=== PATIENT | female | born 1975 | race Caucasian/White ===

== ENCOUNTER 2019-06-05 18:29 | Emergency (ER) | payer MEDICAID ==
[~2019-06-05] VITALS: Ht 162.6 cm; Wt 108.2 kg
[~2019-06-05 18:29] MED LIST: AMOXICILLIN 50500 MG PO; ASPIRIN 81M81 MG/TA2 PO; BACTRIM DS 8001 TAB PO; CEPHALEXIN500 M1 PO; FLAGYL 250250 MG/TAB PO; FOLIC ACID 11 MG/TA1; FORTAMET500 MG PO; GLUCOPHAGE XR500 M1 PO; GLUCOPHAGE1000 MG PO; GLUCOPHAGE500 MG/TAB PO; LEVEMIR SQ; LEVEMIR100 U/ML SQ; LOVENOX 4040 MG/0.4 SQ; MAXZIDE-25MG TA1 TAB PO; METFORMIN500 MG PO; MOTRIN 600600 MG/TAB PO; NO HOME MEDICATIONS; NORCO 325 MG-51 TAB PO; NOVLOG SQ; NOVOLOG 100U100 U/M1; PEPCID 20MG TAB20 MG PO; PERCOCET 325 MG1 TA2 PO; PRENATAL1 TA1 PO; TRAMADOL50 MG PO; ULTRAM 50MG TAB50 MG PO
[2019-06-05 18:43] VITALS: BP 163/99
[2019-06-05 21:35] VITALS: PULSE 98
== END 2019-06-05 21:36 | disposition home or self-care (01) ==
LOC: COL.ER 18:29
DX: K08.89 Other specified disorders of teeth and supporting structures (principal); Z98.818 Other dental procedure status; Z79.84 Long term (current) use of oral hypoglycemic drugs
CPT/HCPCS: J2270

== ENCOUNTER 2020-11-18 21:49 | Inpatient (IN) | payer SELFPAY ==
[~2020-11-18] VITALS: Ht 162.6 cm; Wt 104.5 kg
[2020-11-18 22:22] LABS: HEMATOCRIT 38.7 % (37.0-47.0); HEMOGLOBIN 12.6 g/dl (12.5-16.0); MEAN CELL VOLUME 85 fl (80.0-100.0); MEAN CORPUSCULAR HEMOGLOBIN 28 pg (27.0-31.0); MEAN CORPUSCULAR HGB CONC 33 g/dl (33.0-37.0); MEAN PLATELET VOLUME 9.1 fl (7.4-10.4); PLATELET COUNT 397 K/mm3 (130-400); RED BLOOD COUNT 4.58 M/mm3 (4.10-5.30); REDCELL DISTRIBUTION WIDTH-CV 13.3 % (11.5-14.5)
[2020-11-18 22:32] LABS: ALBUMIN 3.6 gm/dL (3.5-5.0); BILIRUBIN,TOTAL 0.6 mg/dL (0.0-1.0); CALCIUM 8.8 mg/dL (8.4-10.2); CREATININE, serum 0.59 (0.52-1.25); POTASSIUM 4.5 mmol/L (3.4-5.0); TOTAL PROTEIN 7.9 gm/dL (6.4-8.2)
[2020-11-18 23:07] LABS: BAND 8 % (0-10); HYPOCHROMIA 1+; LYMPHOCYTE 15 % (20.0-51.0); NEUTROPHILS 72 % (42.0-75.2); PLATELET ESTIMATE NORMAL (NORMAL)
[2020-11-18 23:13] LABS: C-REACTIVE PROTEIN 36.8 mg/dL (0.0-0.9)
[2020-11-19] VITALS (16 sets, daily range): BP systolic 120–163; BP diastolic 44–79; PULSE 78–102; TEMP 98.2–102.8
--- NOTE | 2020-11-19 03:44 | NUR ---
PATIENT TO ROOM VIA ER CART WITH PATIENT'S FATHER PRESENT. PATIENT ABLE TO WALK FROM CART TO HOSP BED WITH C/O OF RIGHT BUTTOCK PAIN WITH CONTACT TO RIGHT BUTTOCK AREA, OBSERVED SOME LIGHT REDDISH DRAINAGE TO CHUX ON BED WHEN PATIENT SAT DOWN ON SIDE OF BED INITIALLY.
--- NOTE | 2020-11-19 04:14 | NUR ---
PATIENT STATES SHE TAKES OTC TYLENOL AT HOME WITH NO REPORTED PROBLEMS.
--- NOTE | 2020-11-19 04:45 | NUR ---
PATIENT REPORTS INTERMITTENT SOA, SEE [facility] FOR RESPIRATORY ASSESSMENT. REQUESTED TO HAVE RESP TREATMENT THAT SHE RECEIVED IN ED TO BE ORDERED. CONTACTED DR PAGAN REGARDING PATIENT REQUEST, VERBAL ORDER GIVEN TO HAVE DOUNEB RT TREATMENTS PRN. INFORMED RESPIRATORY THERAPY OF VERBAL PROVIDER ORDER, RT STATES THEY WILL PROCESS VERBAL ORDER.
--- NOTE | 2020-11-19 06:10 | NUR ---
PATIENT REQUESTED/GIVEN IV MS FOR COMPLAINT OF RECURRENT R BUTTOCK/LABIA PAIN, SEE MAR FOR DOSE TIME. IV FLUIDS INFUSING WITH NO PROBLEMS.
--- NOTE | 2020-11-19 07:12 | NUR ---
CHANGE OF SHIFT REPORT GIVEN TO DAY SHIFT NURSES, DEVON RN AND ALF BAHENA.
--- NOTE | 2020-11-19 08:00 | NUR ---
Pt is lying in bed on left side at this time, is alert et oriented, pleasant et cooperative. When asked, pt states that abcesses began about 2 weeks ago et she was previously treated for this in [place] on the . Pt's brother the . Pt states that she does have pain in perineal area, rates pain at a 9/10. Pt was previously given morphine this morning et states that it gave her a headache et made her feel sick to her stomach. Pt denies other needs @ this time. Call light et bedside table within reach.
--- NOTE | 2020-11-19 10:15 | NUR ---
firestop/containment worker met with patient to discuss discharge plan. Patient lives at home with her children in [place], [place]. Patient's father Juan F ([phone]) at bedside. Patient is fully independent. Patient does not currently have a PCP but verbalizes she has used [place] in the past and would like her hospital follow up there. Recent traumatic event with [facility] and strongly voices that she does not want to go there. Reports she is uninsured and depending on what they send her home on will need help affording medications. Patient normally uses [facility] in [place] for medications, but upon discharge would like to use [facility] in [place]. Worker confirmed [employer]gr[facility] Chauhan has been in contact with the patient but has not initiated a Medicaid application due to patient heading to surgery. Patient states she does have a DPOA-HC established and her agent is her odest daughter Marisol Wills ([phone]) and has form at home. Patient plans to discharge home. *Discharge plan: Home*
--- NOTE | 2020-11-19 12:00 | NUR ---
PATIENT GOING DOWN TO OR VIA BED. CONSENT ON CHART. IV FLUIDS INFUSING VIA GRAVITY. PATIENT OFF FLOOR.
--- NOTE | 2020-11-19 12:03 | NUR ---
Vancomycin Initial Dosing Pharmacy Note Ordering provider: Sherman Morales MD Indication/duration: cellulitis/abscess rt leg, 7 days LABS: SCr 0.59, CrCl~119, GFR 110 Recommendation: Will continue with Vancomycin 1.25 gm IV q8h. Pharmacy will continue to closely monitor and check a Vancomycin trough prior to 4th dose on 11/20/20. Loading dose: 2 grams Maintenance dose: 1.25 grams every 8 hours Trough goal: 10-15 ug/mL
--- NOTE | 2020-11-19 14:05 | NUR ---
PATIENT BACK IN ROOM 342 POST OP I&D OF PERIANAL ABCESS. MESH PANTIES & ABD INPLACE. VSS. PATIENT RESTING COMFORTABLY IN BED WITH FAMILY AT BEDSIDE.
--- NOTE | 2020-11-19 16:31 | NUR ---
First visit from the contract serviceman. No needs right now.
--- NOTE | 2020-11-19 18:00 | NUR ---
CALLED HOSPITALIST ABOUT CXR & TROPONIN CALLED TO NURSING BY LAB. SEE NEW ORDERS. PATIENT NOW ON 2L OXYGEN TO MAINTAIN SATS ABOVE 92%
--- NOTE | 2020-11-19 18:50 | NUR ---
RECEIVED CHANGE OF SHIFT REPORT FROM DAY SHIFT NURSES. PATIENT REQUESTING PAIN MEDS WHEN NEXT AVAILABLE. UP TO BATHROOM TO VOID, ABD DRSG FELL OFF SURGICAL SITE, REPLACED WITH NEW ABD DRSG/SECURED WITH SURGICAL MESH UNDERWEAR. OXYGEN CONTINUES PER NC, DENIES SOA AT TIME OF REPORT.
--- NOTE | 2020-11-19 22:10 | NUR ---
PATIENT REPORTED BURNING/PAIN TO IV SITE WITH VANCO INFUSING (OBSERVED SOME SWELLING, NO REDNESS WITH C/O PAIN/BURNING), CHANGE IV VANCO OVER TO RAC SITE, AFTER STOPPING ZOSYN INFUSION. ICE APPLIED TO PREV INFITRATED SITE TO RIGHT UPPER FOREARM.
--- NOTE | 2020-11-19 23:46 | NUR ---
INFORMED ONCALL HOSP PROVIDER OF RECENT TEMP AT 101.6, ORDERS TO BE ENTERED BY PROVIDER FOR DOSE FREQUENCY CHANGE FOR TYLENOL.
[2020-11-20] VITALS (7 sets, daily range): BP systolic 114–156; BP diastolic 48–71; PULSE 77–100; TEMP 97.7–101.6
--- NOTE | 2020-11-20 06:48 | NUR ---
CHANGE OF SHIFT REPORT GIVEN TO DAY SHIFT NURSE, KACEY BAHENA.
--- NOTE | 2020-11-20 10:57 | NUR ---
PT RESTING IN BED. PT INDEPENDENT IN ROOM. ABD PAD REPLACED AFTER USING BR. PT RETURNED TO BED INDEPENDENTLY. IV ABX. PT EATING AND DRINKING WITH NO N/V.
[2020-11-20 14:38] LABS: COLLECTION METHOD CLEAN CATCH
[2020-11-20 15:09] LABS: MUCOUS Present /lpf; PH 5 (5-8); SQUAMOUS EPITHELIAL 0-2 /hpf; URINE APPEARANCE Clear; URINE BACTERIA None Seen /hpf; URINE BILIRUBIN Negative (NEGATIVE); URINE BLOOD 1+ (NEGATIVE); URINE COLOR Straw; URINE GLUCOSE 3+ (NEGATIVE); URINE KETONE Negative (NEGATIVE); URINE LEUKOCYTE ESTERASE Negative (NEGATIVE); URINE NITRATE Negative (NEGATIVE); URINE PROTEIN(semi-quant) Negative (NEGATIVE); URINE RBC 0-2 /hpf; URINE UROBILINOGEN Negative (NEGATIVE)
[2020-11-20 20:32] LABS: MEAN CELL VOLUME 84 fl (80.0-100.0); MEAN CORPUSCULAR HGB CONC 32 g/dl (33.0-37.0); RED BLOOD COUNT 3.76 M/mm3 (4.10-5.30); REDCELL DISTRIBUTION WIDTH-CV 13.3 % (11.5-14.5)
[2020-11-20 20:45] LABS: CALCIUM 8.2 mg/dL (8.4-10.2); CREATININE, serum 0.6 (0.52-1.25); POTASSIUM 4.1 mmol/L (3.4-5.0)
[2020-11-20 20:52] LABS: HEMATOCRIT 31.7 % (37.0-47.0); HEMOGLOBIN 10.2 g/dl (12.5-16.0); MEAN CORPUSCULAR HEMOGLOBIN 27 pg (27.0-31.0)
[2020-11-20 20:53] LABS: PLATELET COUNT 268 K/mm3 (130-400)
[2020-11-20 21:22] LABS: BAND 6 % (0-10); EOSINOPHIL 2 % (0-4); LYMPHOCYTE 27 % (20.0-51.0); METAMYELOCYTE 1 % (0-0); NEUTROPHILS 60 % (42.0-75.2)
[2020-11-20 21:23] LABS: PLATELET ESTIMATE NORMAL (NORMAL)
[2020-11-21 02:43] VITALS: BP 147/65; PULSE 89; TEMP 98.6
--- NOTE | 2020-11-21 06:27 | NUR ---
PATIENT ALERT AND ORIENTED X4. TEMP MAX 100.2 TYLENOL GIVEN ORDERED. HOPITALIST MADE AWARE. CONTINUE ON ABX. PAIN MANAGE WITH DILAUDID IV. NEW IV ACCESS PLACE IN [facility]. RIGHT GROIN ABCESS DRESSING DONE. CALL LIGHT WITHIN REACH. WILL CONTINUE TO MONITOR.
[2020-11-21 07:19] LABS: HEMOGLOBIN 10.2 g/dl (12.5-16.0); MEAN CELL VOLUME 88 fl (80.0-100.0); MEAN CORPUSCULAR HEMOGLOBIN 28 pg (27.0-31.0); MEAN CORPUSCULAR HGB CONC 32 g/dl (33.0-37.0); MEAN PLATELET VOLUME 9.1 fl (7.4-10.4); PLATELET COUNT 271 K/mm3 (130-400); RED BLOOD COUNT 3.61 M/mm3 (4.10-5.30); REDCELL DISTRIBUTION WIDTH-CV 13.4 % (11.5-14.5)
[2020-11-21 07:33] LABS: HEMATOCRIT 31.6 % (37.0-47.0)
[2020-11-21 07:49] LABS: CALCIUM 8.2 mg/dL (8.4-10.2); CREATININE, serum 0.58 (0.52-1.25); POTASSIUM 3.6 mmol/L (3.4-5.0)
[2020-11-21 08:26] LABS: BAND 10 % (0-10); LYMPHOCYTE 25 % (20.0-51.0); NEUTROPHILS 54 % (42.0-75.2); PLATELET ESTIMATE NORMAL (NORMAL)
[2020-11-21 08:36] LABS: C-REACTIVE PROTEIN 22.7 mg/dL (0.0-0.9)
[2020-11-21 08:55] VITALS: BP 127/47; PULSE 88; TEMP 97.9
--- NOTE | 2020-11-21 10:16 | NUR ---
PT UP TO BR AFTER BREAKFAST. PT SWABBED FOR PCR. SENT TO CT FOR CHEST. NO PE FOUND. PT SPIKING LOW GRADE TEMPS. THROUGH NOC. A-FEBRILE AT THIS TIME. PT CONTINUES TO HAVE A NPC, VERY DRY. CT SHOWED POSSIBLE FLUID OVERAGE. PT EATING AND DRINKING WITH NO ISSUES.
[2020-11-21 11:52] VITALS: BP 124/46; PULSE 80; TEMP 97.6
[2020-11-21 16:55] VITALS: BP 164/63; PULSE 98; TEMP 98.8
--- NOTE | 2020-11-21 18:24 | NUR ---
PT UP TO SHOWER INDEPENDENTLY, RETURNED TO BED. DIFLUCAN GIVEN FOR C/O YEAST INFXN. DRESSING REPACKED AND ABD OVER SITE. PT TOLERATED WELL.
[2020-11-21 20:27] VITALS: BP 150/66; PULSE 84; TEMP 98.5
--- NOTE | 2020-11-21 23:12 | NUR ---
Patient assessed around 2100. Alert and oriented x 4, and able to make needs known. Reported level 8 pain to incision site to r buttock/gleuteal fold. Dressing CDI. Given PRN Roxicodone as requested for pain. Continues on IV ABXs per orders. Was on room air at beginning of shift, but after going to the bathroom, patient became short of breath and requested oxygen. On 3 L/min via oxymask as requested. LS CTA in upper lobes, diminished in lower. Voices no further questions, needs, or concerns at this time. Resting in bed with call light within reach.
[2020-11-22] VITALS (7 sets, daily range): BP systolic 131–159; BP diastolic 51–74; PULSE 84–96; TEMP 97.8–99.8
--- NOTE | 2020-11-22 06:09 | NUR ---
Patient received PRN Roxicodone for pain twice during the night. Continues on IV antibiotics. Spoke with BILL Amado who was agreeable to put order in to have PICC placed today due to IV antibiotics.
[2020-11-22 07:04] LABS: MEAN CELL VOLUME 86 fl (80.0-100.0); MEAN CORPUSCULAR HGB CONC 32 g/dl (33.0-37.0); MEAN PLATELET VOLUME 9.3 fl (7.4-10.4); PLATELET COUNT 292 K/mm3 (130-400); REDCELL DISTRIBUTION WIDTH-CV 13.2 % (11.5-14.5)
[2020-11-22 07:21] LABS: CALCIUM 8.4 mg/dL (8.4-10.2); CREATININE, serum 0.54 (0.52-1.25); POTASSIUM 4.3 mmol/L (3.4-5.0)
[2020-11-22 07:24] LABS: HEMATOCRIT 30.9 % (37.0-47.0); HEMOGLOBIN 9.8 g/dl (12.5-16.0); MEAN CORPUSCULAR HEMOGLOBIN 27 pg (27.0-31.0)
[2020-11-22 08:01] LABS: BAND 11 % (0-10); EOSINOPHIL 1 % (0-4); LYMPHOCYTE 20 % (20.0-51.0); METAMYELOCYTE 1 % (0-0); NEUTROPHILS 63 % (42.0-75.2)
[2020-11-22 08:02] LABS: ANISOCYTOSIS 1+; PLATELET ESTIMATE NORMAL (NORMAL)
--- NOTE | 2020-11-22 09:07 | NUR ---
AIVS AT BEDSIDE TO PLACE PICC LINE
--- NOTE | 2020-11-22 10:45 | NUR ---
DRESSING CHANGE COMPLETED @ THIS TIME. PT TOLERATED WELL. MODERATE AMOUNT OF SEROSANGUINOUS DRAINAGE NOTED ON OLD DRESSING. XEROFORM GAUZE ET 4X4 GAUZE USED. PAD USED TO SECURE DRESSING IN BRIEFS.
--- NOTE | 2020-11-22 12:16 | NUR ---
social contact worker met with patient to discuss concerns about going home. Patient has no concerns about going home other then not being able to afford her hospital stay/ medications. social contact worker confirmed that the patient has talked to Ingris Chauhan and the patient should be getting paperwork in the mail from Ingris.
--- NOTE | 2020-11-22 16:12 | NUR ---
WHEN THIS NURSE ENTERS ROOM, PT IS IN BATHROOM USING TOILET ET IS MOANING IN PAIN. PT STATES THAT PAIN IS INCREASED IN LEFT BUTTOCK/LABIA ET RATES IT A PAIN. PT IS NEARLY IN TEARS ET DESCRIBES PAIN BURNING. PT'S TEMP IS ELEVATED @ 99.8. PO TYLENOL ET PAIN MEDICATION ADMINISTERED. PT REPOSITIONED SELF IN BED, DENIES OTHER NEEDS @ THIS TIME. OXYMASK ON, CALL LIGHT WITHIN REACH.
--- NOTE | 2020-11-22 21:26 | NUR ---
ASSESSMENT COMPLETED, ALERT AND ORIENTED. VS ARE STABLE DENIES PAIN ON ASSESSMENT TIME. REFUSED TO GET DRESSING CHANGE IN HER LEEROY AREA ABSCESS.SHE SAID THAT IT WAS DONE AND SHE SAID ITS ONES A DAY NOW.RN SAID THE ORDER IS BID AND SHE STILL REFUSED IT. RN ABLE TO ASSESSED THE LEEROY AREA AND ITS DRESSED BY XERO FORM,GAUZE AND ABD WITH PANTY MESH. MEDS GIVEN ANTIBIOTICS PER SCHEDULED.NO FURTHER COMPLAIN. WILL CONTINUE TO MONITOR.
[2020-11-23 03:04] VITALS: BP 151/79; PULSE 86; TEMP 98.3
--- NOTE | 2020-11-23 07:00 | NUR ---
PT RESTING QUIETLY IN BED WHILE NURSING REPORT IS GIVEN TO THIS NURSE. PT IS ON ROOM AIR, RESPIRATIONS UNLABORED.
[2020-11-23 07:06] LABS: MEAN CELL VOLUME 84 fl (80.0-100.0); MEAN CORPUSCULAR HGB CONC 32 g/dl (33.0-37.0); MEAN PLATELET VOLUME 9.5 fl (7.4-10.4); PLATELET COUNT 300 K/mm3 (130-400); RED BLOOD COUNT 3.62 M/mm3 (4.10-5.30); REDCELL DISTRIBUTION WIDTH-CV 13.6 % (11.5-14.5)
[2020-11-23 07:10] LABS: HEMATOCRIT 30.5 % (37.0-47.0); HEMOGLOBIN 9.8 g/dl (12.5-16.0); MEAN CORPUSCULAR HEMOGLOBIN 27 pg (27.0-31.0)
[2020-11-23 07:25] LABS: CALCIUM 8.5 mg/dL (8.4-10.2); CREATININE, serum 0.57 (0.52-1.25)
[2020-11-23 08:00] VITALS: BP 140/68; PULSE 83; TEMP 98.2
[2020-11-23 08:42] LABS: BAND 11 % (0-10); EOSINOPHIL 4 % (0-4); LYMPHOCYTE 19 % (20.0-51.0); METAMYELOCYTE 3 % (0-0); NEUTROPHILS 53 % (42.0-75.2); PLATELET ESTIMATE NORMAL (NORMAL)
--- NOTE | 2020-11-23 09:25 | NUR ---
Initial visit; Patient doing well today and thanked Polish Maker for looking in on her and offering God's blessings. Patient was receptive to [employer] Maker keeping her in Polish Maker's prayers.
--- NOTE | 2020-11-23 10:15 | NUR ---
DRESSING ET PACKING CHANGED @ THIS TIME. PT HAS PAIN WITH PACKING CHANGE. PT MEDICATED WITH PO OXYCODONE BEFORE DRESSING CHANGE. MODERATE AMOUNT OF SEROSANGUINEOUS DRAINAGE WITH NO ODOR. PT'S PAIN DECREASES WITH POSITION CHANGE. DENIES OTHER NEEDS, CALL LIGHT WITHIN REACH.
[2020-11-23 12:00] VITALS: BP 148/74; PULSE 82; TEMP 98.2
[2020-11-23 15:19] VITALS: BP 148/69; PULSE 91; TEMP 98.7
[2020-11-23 19:27] VITALS: BP 177/75; PULSE 96; TEMP 98.6
[2020-11-23 19:39] VITALS: TEMP 99.3
--- NOTE | 2020-11-23 21:44 | NUR ---
Assessment completed, alert,oriented. Complains of pain in her right groin area. PRN pain meds given. BP is high probably because of pain will follow up about that. Patient said that she cant breath her saturation is 95 RN put her to 1L and ff-up says she is doing better. Dressing changed done at 2100 in her kevin area, it's packed with xeroform, 4x4 and abd pad. Otherwise no further complains noted. Call light is provided. Will continue to monitor.
[2020-11-24] VITALS (7 sets, daily range): BP systolic 139–151; BP diastolic 59–74; PULSE 79–89; TEMP 97.9–98.9
[2020-11-24 08:30] LABS: MEAN CELL VOLUME 88 fl (80.0-100.0); MEAN CORPUSCULAR HGB CONC 32 g/dl (33.0-37.0); MEAN PLATELET VOLUME 9.2 fl (7.4-10.4); PLATELET COUNT 314 K/mm3 (130-400); RED BLOOD COUNT 3.58 M/mm3 (4.10-5.30); REDCELL DISTRIBUTION WIDTH-CV 13.6 % (11.5-14.5)
[2020-11-24 08:37] LABS: HEMATOCRIT 31.4 % (37.0-47.0); HEMOGLOBIN 9.9 g/dl (12.5-16.0); MEAN CORPUSCULAR HEMOGLOBIN 28 pg (27.0-31.0)
[2020-11-24 08:41] LABS: CALCIUM 8.6 mg/dL (8.4-10.2); CREATININE, serum 0.77 (0.52-1.25); POTASSIUM 3.7 mmol/L (3.4-5.0)
[2020-11-24 09:06] LABS: BASOPHIL 1 % (0-2); EOSINOPHIL 2 % (0-4); LYMPHOCYTE 24 % (20.0-51.0); METAMYELOCYTE 1 % (0-0); NEUTROPHILS 65 % (42.0-75.2)
[2020-11-24 09:07] LABS: HYPOCHROMIA 2+; PLATELET ESTIMATE NORMAL (NORMAL)
--- NOTE | 2020-11-24 11:01 | NUR ---
Patient resting in bed, call light in reach. Packing was changed to labia/buttock wound. Observed some bloody drainage. New dressing was applied to area and mesh panties applied over area. Will continue to monitor.
--- NOTE | 2020-11-24 14:23 | NUR ---
Patient had a shower today with staff only setting out supplies for her and wrapping her right arm where picc line is located. Patient independent with all grooming and ambulating. Patient managing pain with Oxycodone this shift. Currently resting in bed watching TV with call light in reach.
--- NOTE | 2020-11-24 21:55 | NUR ---
Pt has been ok. Pain rated 6/10. Vss. Will continue to monitor.
[2020-11-25 03:07] VITALS: BP 148/70; PULSE 71; TEMP 98
[2020-11-25 07:11] LABS: MEAN CELL VOLUME 86 fl (80.0-100.0); MEAN CORPUSCULAR HEMOGLOBIN 27 pg (27.0-31.0); MEAN CORPUSCULAR HGB CONC 32 g/dl (33.0-37.0); MEAN PLATELET VOLUME 9.3 fl (7.4-10.4); PLATELET COUNT 334 K/mm3 (130-400); RED BLOOD COUNT 3.69 M/mm3 (4.10-5.30); REDCELL DISTRIBUTION WIDTH-CV 13.5 % (11.5-14.5)
[2020-11-25 07:13] LABS: HEMATOCRIT 31.6 % (37.0-47.0)
[2020-11-25 07:15] LABS: CALCIUM 8.6 mg/dL (8.4-10.2); CREATININE, serum 0.74 (0.52-1.25); POTASSIUM 4.2 mmol/L (3.4-5.0)
[2020-11-25 08:31] VITALS: BP 158/69; PULSE 88; TEMP 98.2
[2020-11-25 08:32] LABS: BAND 6 % (0-10); LYMPHOCYTE 20 % (20.0-51.0); METAMYELOCYTE 2 % (0-0); NEUTROPHILS 63 % (42.0-75.2); PLATELET ESTIMATE NORMAL (NORMAL)
--- NOTE | 2020-11-25 08:50 | NUR ---
Patient in bed resting. Alert and oriented x 3. Assessment complete. Patient states pain 8/10, medications given per orders. PICC line to ABIEL without complications. Denies additional needs at this time.
--- NOTE | 2020-11-25 11:41 | NUR ---
Dressing changed after patient showered, packed with iodoform, gauze dressing and pad applied. Having serosanguinous drainage with small amount of purulent drainage noted. Patient states abcess appears to be worse than when she initially came in. Denies further needs at this time.
[2020-11-25] MEDS ORDERED: NOVOLOG 100U100 U/M1 SQ (12:35)
[2020-11-25] MEDS ORDERED: LEVEMIR100 U/ML SQ (12:35)
[2020-11-25 12:45] VITALS: BP 151/72; PULSE 83; TEMP 98.4
[2020-11-25] MEDS ORDERED: ZESTRIL 10MG10 MG PO (14:19)
--- NOTE | 2020-11-25 14:47 | NUR ---
Sw contacted the [facility] for the patient's insulin. They have already sent their delivery out for today and won't be able to get the medication here until Sunday. Worker called [facility] to look into doing a medication voucher.Medication as written would cost $600.32. For the generic brand it would cost $394.24. Spoke with physicians about option through [facility].
[2020-11-25] MEDS ORDERED: INSHUMULIN7030KWIK SQ (15:04)
[2020-11-25] MEDS ORDERED: AMOXICILLIN 8751 TAB PO (15:06)
--- NOTE | 2020-11-25 15:43 | NUR ---
ADY contacted [facility] to set the patient up with a PCP. Patient has an appointment with Dr. Kulwant Waddell on Dec.02 @ 0930. ADY informed the patient that they do accept patient's who are self pay and advised her to ask about their financial assistance program when she goes for her appointment. tabulating clerk notified.
[2020-11-25 16:09] VITALS: BP 151/73; PULSE 85; TEMP 98.8
[2020-11-25] MEDS ORDERED: ROXICODONE 55 MG/TAB PO (18:03)
--- NOTE | 2020-11-25 18:03 | NUR ---
Contacted Dr. Husain about pain meds for home use.
--- NOTE | 2020-11-25 18:30 | NUR ---
Discharge education provided to patient. Educated on when to call provider and follow up appointments. Patient educated on all new medications and medication safety. Educated on dressing changes. All questions answered. Patient out by wheelchair with surgical staff.
== END 2020-11-25 18:30 | disposition home or self-care (01) | DRG 579 ==
LOC: COL.ER 21:49 → SURG 11-19 02:25
PROVIDERS: Physician Assistant; Surgery; ADMIT Internal Medicine
PROC: 0J9B0ZZ Drainage of Perineum Subcutaneous Tissue and Fascia, Open Approach (ICD-10-PCS; principal; 2020-11-19 12:00)
DX: L02.215 Cutaneous abscess of perineum (principal); J96.01 Acute respiratory failure with hypoxia; L02.415 Cutaneous abscess of right lower limb; L03.115 Cellulitis of right lower limb; E87.3 Alkalosis; R65.10 Systemic inflammatory response syndrome (SIRS) of non-infectious origin without acute organ dysfunction; E11.65 Type 2 diabetes mellitus with hyperglycemia; E66.9 Obesity, unspecified; Z20.822 Contact with and (suspected) exposure to COVID-19; L03.315 Cellulitis of perineum; I50.9 Heart failure, unspecified; I08.1 Rheumatic disorders of both mitral and tricuspid valves; I11.0 Hypertensive heart disease with heart failure; Z79.84 Long term (current) use of oral hypoglycemic drugs; R05 Cough; K59.00 Constipation, unspecified; Z86.73 Personal history of transient ischemic attack (TIA), and cerebral infarction without residual deficits; Z90.710 Acquired absence of both cervix and uterus; Z87.891 Personal history of nicotine dependence; Z88.5 Allergy status to narcotic agent
CPT/HCPCS: OP; 99223-AI; 99232-AI; 99233-AI; 99239; C1751; J0696; J1170; J1650; J1815; J1885; J1940; J2270; J2405; J2543; J2704; J3010; J3370; J7030; J7040; J7050; Q9967